=== PATIENT | male | born 1960 | race African-American/Black ===

== ENCOUNTER → 2018-03-22 | Outpatient (CLI) | payer MEDICARE, OTHER ==
--- NOTE | 2018-03-22 12:40 | P.STRESS ---
- Stress Test Note Stress Test Results/Findings: Exam Performed: stress test Exam Date: 03/22/18 Reason for Exam: Short of breath Height: 5 ft 11 in Weight: 103.873 kg Protocol: Feliz Stage: 1 Duration of Exercise: 5:20 Resting Heart Rate: 94 Resting Blood Pressure: 147/107 Maximum Achieved Heart Rate: 139 Maximum Achieved Blood Pressure: 206/102 85% PMHR: 138 100% PMHR: 162 METS: 6.1 Technologist Comment: Stress Test Results/Findings: This is a 57-year-old gentleman with history of hypertension and smoking history. Being evaluated for symptoms of shortness of breath. Stress data: Baseline EKG showed sinus rhythm with normal [place] interval and QRS duration. Blood pressure at rest is 147/107 with a pulse rate of 94. Patient walked on the Feliz protocol for 5 minutes and 20 seconds achieving a maximum rate of 139 with a blood pressure of 206 last 102. Patient became short of breath and tired. EKGs taken during and after exercise did not reveal any significant changes from the baseline. Patient did not experience any chest pain. Final impression #1. Limited excess capacity #2. Uncontrolled hypertension. # 3. Negative stress test #4, patient developed shortness of breath and tiredness. #5. No arrhythmias detected
--- NOTE | 2018-03-25 15:51 | EST ---
Stress Test Results/Findings: Exam Performed: stress test Exam Date: 03/22/18 Reason for Exam: Short of breath Height: 5 ft 11 in Weight: 103.873 kg Protocol: Feliz Stage: 1 Duration of Exercise: 5:20 Resting Heart Rate: 94 Resting Blood Pressure: 147/107 Maximum Achieved Heart Rate: 139 Maximum Achieved Blood Pressure: 206/102 85% PMHR: 138 100% PMHR: 162 METS: 6.1 Technologist Comment: Stress Test Results/Findings: This is a 57-year-old gentleman with history of hypertension and smoking history. Being evaluated for symptoms of shortness of breath. Stress data: Baseline EKG showed sinus rhythm with normal [place] interval and QRS duration. Blood pressure at rest is 147/107 with a pulse rate of 94. Patient walked on the Feliz protocol for 5 minutes and 20 seconds achieving a maximum rate of 139 with a blood pressure of 206 last 102. Patient became short of breath and tired. EKGs taken during and after exercise did not reveal any significant changes from the baseline. Patient did not experience any chest pain. Final impression #1. Limited excess capacity #2. Uncontrolled hypertension. # 3. Negative stress test #4, patient developed shortness of breath and tiredness. #5. No arrhythmias detected MTDD
== END | disposition home or self-care (01) ==
LOC: RADNMMAIN 10:21
PROVIDERS: ATTEND Family Medicine
DX: I10 Essential (primary) hypertension (principal)
CPT/HCPCS: 93017